=== PATIENT | male | born 1980 | race Caucasian/White ===

== ENCOUNTER 2017-01-06 13:30 | Emergency (ER) | payer MEDICAID ==
[2017-01-06 13:37] VITALS: BP 148/74
== END 2017-01-06 17:19 | disposition home or self-care (01) ==
LOC: ED 13:30
DX: S62.602A Fracture of unspecified phalanx of right middle finger, initial encounter for closed fracture (principal); S61.212A Laceration without foreign body of right middle finger without damage to nail, initial encounter; R03.0 Elevated blood-pressure reading, without diagnosis of hypertension; X58.XXXA Exposure to other specified factors, initial encounter; Y93.89 Activity, other specified; Y99.8 Other external cause status; Y92.89 Other specified places as the place of occurrence of the external cause
CPT/HCPCS: 90715; A4570; J2001

== ENCOUNTER 2017-01-08 10:36 | Emergency (ER) | payer MEDICAID ==
[2017-01-08 10:39] VITALS: BP 137/112
== END 2017-01-08 12:12 | disposition home or self-care (01) ==
LOC: ED 10:36
DX: S62.602D Fracture of unspecified phalanx of right middle finger, subsequent encounter for fracture with routine healing (principal); Z79.2 Long term (current) use of antibiotics; X58.XXXD Exposure to other specified factors, subsequent encounter

== ENCOUNTER 2018-10-20 14:55 | Emergency (ER) | payer MEDICAID ==
[~2018-10-20] VITALS: Ht 167.6 cm; Wt 65.3 kg
[2018-10-20 14:59] VITALS: Ht 167.6 cm; Wt 65.3 kg
[2018-10-20 16:55] LABS: microscopic required? NO
[2018-10-20 17:09] LABS: UA SPECIFIC GRAVITY 1.015 (1.005-1.035); urine erythrocyte NEGATIVE (NEGATIVE)
[2018-10-20 17:12] LABS: BASOPHIL % 0.1 % (0-2); PLATELET COUNT 204 x10^3mcL (130-400); RED CELL DISTRIBUTION WIDTH 12.4 % (11.5-14.5)
[2018-10-20 17:23] LABS: CALCIUM 9.5 mg/dL (8.5-10.1); CARBON DIOXIDE 26.1 mmol/L (21-32); CHLORIDE SERUM 104 mmol/L (98-107); CREATININE SERUM 0.7 mg/dL (0.7-1.3); GFR1 > 60 mL/min; GLUCOSE SERUM 104 mg/dL (74-106); POTASSIUM SERUM 3.8 mmol/L (3.5-5.1); SODIUM SERUM 140 mmol/L (136-145)
[2018-10-20 17:28] LABS: ALBUMIN 4.3 g/dL (3.4-5.0); ALKALINE PHOSPHATASE 73 U/L (46-116); ALT/SGPT 34 U/L (16-63); AST/SGOT 18 U/L (15-37); BILIRUBIN TOTAL 0.59 mg/dL (0.20-1.00); LIPASE 101 IU/L (73-393)
[2018-10-20 19:30] VITALS: BP 129/80
== END 2018-10-20 19:30 | disposition home or self-care (01) ==
LOC: ED 14:55
PROVIDERS: Emergency Medicine
DX: K52.9 Noninfective gastroenteritis and colitis, unspecified (principal)
CPT/HCPCS: 36415